=== PATIENT | male | born 1950 | race Caucasian/White ===

== ENCOUNTER 2023-05-06 15:03 | Inpatient (IN) | payer MEDICARE ==
[2023-05-06] MEDS ORDERED: Labetalol HCl 100 MG/20 ML VIAL SLOW IVP PRN (16:33)
[2023-05-06] MEDS ORDERED: Communication Order-Pharmacy FS SCH (16:33)
[2023-05-06] MEDS ORDERED: hydrALAZINE 20 MG/ML VIAL SLOW IVP PRN (16:33)
[2023-05-06] MEDS ORDERED: Acetaminophen 325 MG TAB PO PRN (16:33)
[2023-05-06] MEDS ORDERED: niCARdipine 25 MG in Sodium Chloride 0.9% 250 ML 250 ML IVPB PRN (16:33)
[2023-05-06] MEDS ORDERED: Ipratropium/Albuterol 3 ML NEB NEB PRN ×2 (17:31→19:15)
[2023-05-06] MEDS ORDERED: Dextrose 5% in Water 1,000 ML IV PRN (17:37)
[2023-05-06] MEDS ORDERED: HumaLOG 300 UNITS/3 ML VIAL SC PRN (17:37)
[2023-05-06] MEDS ORDERED: Glucagon 1 MG/ML KIT IM PRN (17:37)
[2023-05-06] MEDS ORDERED: Dextrose 50% Abboject 50 ML SYRINGE SLOW IVP PRN (17:37)
[2023-05-06] MEDS: Atorvastatin Calcium 40 MG TAB PO SCH (20:48)
[2023-05-06] MEDS: Ampicillin/Sulbactam 3 GM in Sodium Chloride 0.9% 100 ML IVPB SCH (20:48)
[2023-05-06] MEDS: Ipratropium/Albuterol 3 ML NEB NEB SCH (21:30)
[2023-05-07] MEDS: Ampicillin/Sulbactam 3 GM in Sodium Chloride 0.9% 100 ML IVPB SCH ×4 (02:09→20:41)
[2023-05-07] MEDS: Ipratropium/Albuterol 3 ML NEB NEB SCH ×6 (02:18→21:51)
[2023-05-07 07:54] VITALS: BMI 22.8
[2023-05-07] MEDS: Pantoprazole 40 MG VIAL IVP SCH (08:10)
[2023-05-07] MEDS ORDERED: HYDROcodone/Acetaminophen 10/325 mg Tablet PO PRN (13:30)
[2023-05-07] MEDS: Gabapentin 100 MG CAP PER TUBE SCH ×2 (14:30→20:43)
[2023-05-07] MEDS: Lidocaine Viscous Sol 2% 15 ml UD Cup SSP SCH ×2 (14:57→20:42)
[2023-05-07] MEDS ORDERED: Aspirin 81 mg Enteric Coated Tablet PO SCH (16:30)
[2023-05-07] MEDS: metFORMIN 500 MG TAB PO SCH (20:42)
[2023-05-07] MEDS: Chlorhexidine Gluconate 15 ML UDCUP SSP SCH (20:42)
[2023-05-07] MEDS: Atorvastatin Calcium 40 MG TAB PO SCH (20:42)
[2023-05-07] MEDS ORDERED: HumaLOG 300 UNITS/3 ML VIAL SC PRN (22:15)
[2023-05-08] MEDS: Ipratropium/Albuterol 3 ML NEB NEB SCH ×6 (02:26→21:57)
[2023-05-08] MEDS: Ampicillin/Sulbactam 3 GM in Sodium Chloride 0.9% 100 ML IVPB SCH ×4 (02:27→20:43)
[2023-05-08 04:11] LABS: #Eosinphils 0.1 thou/uL (0.0-0.7); #Monocytes 0.7 thou/uL (0.11-0.59); #Neutrophils 5.9 thou/uL (1.40-6.50); %Basophils 0.2 % (0.0-1.0); %Eosinophils 1.1 % (0.0-10.0); %Lymphocytes 16.1 % (21.0-51.0); %Monocytes 8.9 % (0.0-10.0); %Neutrophils 73.3 % (42.0-75.0); Hematocrit 32.2 % (42.0-52.0); Hemoglobin 10.5 g/dL (14.0-18.0); Mean Corpuscular HGB CONC 32.6 g/dL (32.0-36.0); Mean Corpuscular Hemoglobin 29.7 pg (27.0-31.0); Mean Platelet Volume 9.5 fL (7.4-10.4); Platelet Count 204 10x3/uL (130-400); RBC Distribution Width 14.2 % (11.5-14.5); Red Blood Cell (RBC) Count 3.54 mill/uL (4.70-6.10); White Blood Cell (WBC) Count 8.1 10x3/uL (4.8-10.8)
[2023-05-08 04:21] LABS: Hemoglobin A1c 6.6 % (4.0-6.0)
[2023-05-08 04:39] LABS: Anion Gap 14 mmol/L (10-20); BUN (Urea Nitrogen) 28 mg/dL (8.4-25.7); Calc. Creatinine Clearance 73 mL/min (70-130); Calcium 9.3 mg/dL (7.8-10.44); Carbon Dioxide 28 mmol/L (23-31); Cardiac Risk 2.7 (Less than 4.5); Chloride 101 mmol/L (98-107); Cholesterol 105 mg/dl (< 200 Desired); Estimated GFR 90; Glucose 134 mg/dL (83-110); HDL Cholesterol 39 mg/dL (>60 Neg Risk); LDL Cholesterol, Calculated 56 mg/dL; Potassium 3.8 mmol/L (3.5-5.1); Sodium 139 mmol/L (136-145); Triglycerides 49 mg/dL (Less than 150)
[2023-05-08] MEDS: Pantoprazole 40 MG VIAL IVP SCH (08:27)
[2023-05-08] MEDS: Chlorhexidine Gluconate 15 ML UDCUP SSP SCH ×3 (08:29→20:43)
[2023-05-08] MEDS: Gabapentin 100 MG CAP PER TUBE SCH ×3 (08:29→20:43)
[2023-05-08] MEDS: metFORMIN 500 MG TAB PO SCH ×2 (08:29→20:44)
[2023-05-08] MEDS ORDERED: Aspirin Chewable 81 MG TAB PO SCH (09:00)
[2023-05-08] MEDS ORDERED: Aspirin 300 MG Suppository PR SCH (09:00)
[2023-05-08] MEDS ORDERED: Aspirin 81 mg Enteric Coated Tablet PO SCH (09:00)
[2023-05-08] MEDS: Lidocaine Viscous Sol 2% 15 ml UD Cup SSP SCH ×3 (11:04→21:16)
[2023-05-08 17:07] VITALS: BP 168/76
[2023-05-08] MEDS: Atorvastatin Calcium 40 MG TAB PO SCH (20:43)
[2023-05-09 00:37] VITALS: TEMP 98.8
[2023-05-09] MEDS: Ampicillin/Sulbactam 3 GM in Sodium Chloride 0.9% 100 ML IVPB SCH (01:43)
[2023-05-09] MEDS: Ipratropium/Albuterol 3 ML NEB NEB SCH (01:59)
== END 2023-05-09 03:17 | disposition short-term general hospital (02) | DRG 64 ==
LOC: ERS 15:03 → CCU 16:37
PROVIDERS: ADMIT Emergency Medicine; ATTEND Internal Medicine
DX: I63.032 Cerebral infarction due to thrombosis of left carotid artery (principal); G93.6 Cerebral edema; G81.91 Hemiplegia, unspecified affecting right dominant side; T86.822 Skin graft (allograft) (autograft) infection; I10 Essential (primary) hypertension; E78.5 Hyperlipidemia, unspecified; E11.9 Type 2 diabetes mellitus without complications; F17.210 Nicotine dependence, cigarettes, uncomplicated; F10.90 Alcohol use, unspecified, uncomplicated; F17.220 Nicotine dependence, chewing tobacco, uncomplicated; C06.9 Malignant neoplasm of mouth, unspecified; R47.01 Aphasia; S01.402A Unspecified open wound of left cheek and temporomandibular area, initial encounter; Z90.49 Acquired absence of other specified parts of digestive tract; Z98.890 Other specified postprocedural states; Z79.4 Long term (current) use of insulin
CPT/HCPCS: 36415; 36416; 70450; 71045; 80048; 80061; 83036; 85025; 93306; 94640; C9113; J0295; J1815; J3490; J7620